=== PATIENT | male | born 1970 | race Caucasian/White ===

== ENCOUNTER 2019-11-02 12:59 | Emergency (ER) | payer OTHER ==
[~2019-11-02] VITALS: Ht 165.1 cm; Wt 70.8 kg
[2019-11-02 13:05] VITALS: BP_SYST 104
--- NOTE | 2019-11-02 13:05 | NUR ---
Pt placed in bed 6 by BLS
--- NOTE | 2019-11-02 13:06 | NUR ---
Pt BIB BLS from [facility] for increased weakness and decline in ADLs. Pt denies pain, SOB or CP at this time. Pt is aox3. Pt has a hx of CVA with right sided weakness.
[2019-11-02] MEDS ORDERED: ELVI1TAB3 PO (13:14)
[2019-11-02] MEDS ORDERED: SER100 PO (13:14)
[2019-11-02] MEDS ORDERED: DARU1TAB PO (13:14)
[2019-11-02] MEDS ORDERED: MIRT30TA PO (13:14)
--- NOTE | 2019-11-02 13:15 | NUR ---
Patient is awake, alert, and oriented x4. Patient arrived via ambulance. Patient was sent in due to increased weakness. Patient states it is due to his medication. Patient is complaining of left hand pain radiating up to his neck 07/04, states it is chronic due to a stroke 7 years ago. Patient denies nausea, vomiting, and diarrhea.
[2019-11-02 13:59] LABS: BASOPHILS % (AUTO) 0.8 % (0.0-2.0); EOSINOPHILS # (AUTO) 0.1 K/uL (0.0-0.4); EOSINOPHILS % (AUTO) 3.4 % (0.0-4.0); HEMATOCRIT 38.8 % (36-54); HEMOGLOBIN 12.7 g/dL (14.0-18.0); LYMPHOCYTES # (AUTO) 1.2 K/uL (1.0-5.5); LYMPHOCYTES % (AUTO) 31.8 % (20.5-51.5); MEAN CORPUSCULAR HEMOGLOBIN 29 pg (27-31); MEAN CORPUSCULAR HGB CONC 33 % (32-36); MEAN CORPUSCULAR VOLUME 89 fL (79.0-98.0); MONOCYTES # (AUTO) 0.4 K/uL (0.0-1.0); MONOCYTES % (AUTO) 10.2 % (1.7-9.3); NEUTROPHILS % (AUTO) 53.8 % (40.0-70.0); PLATELET COUNT (AUTO) 257 K/uL (130-430); RED BLOOD CELL COUNT(AUTO) 4.36 MIL/uL (4.2-6.2); RED CELL DISTRIBUTION WIDTH 15.7 % (9.0-15.0); WHITE BLOOD COUNT (AUTO) 3.7 K/uL (4.8-10.8)
[2019-11-02 14:12] LABS: CALCIUM 8.4 mg/dL (8.4-11.0); CREATININE 1.37 mg/dL (0.55-1.30); POTASSIUM 3.7 mmol/L (3.5-5.1)
[2019-11-02 14:19] LABS: ALBUMIN 3.6 g/dL (3.4-4.8); TOTAL BILIRUBIN 0.4 mg/dL (0.0-1.0)
--- NOTE | 2019-11-02 14:54 | NUR ---
Medication reconciliation completed with information provided by facility. Any prior medication reconciliation on file was reviewed and corrected.
[2019-11-02 15:50] LABS: BILIRUBIN,URINE NEGATIVE (NEGATIVE); BLOOD, URINE NEGATIVE (NEGATIVE); CLARITY/URINE CLEAR (CLEAR); COLOR,URINE YELLOW (YELLOW); GLUCOSE,URINE NEGATIVE (NEGATIVE); KETONES,URINE NEGATIVE (NEGATIVE); LEUKOCYTE ESTERASE ,URINE NEGATIVE (NEGATIVE); NITRITE, URINE NEGATIVE (NEGATIVE); PH,URINE 6.5 (5.0-8.0); PROTEIN URINE NEGATIVE (NEGATIVE); UROBILINOGEN,URINE 0.2 (0.2-1.0)
[2019-11-02 17:38] VITALS: BP_SYST 114
--- NOTE | 2019-11-02 17:52 | NUR ---
[facility] to transport patient back to facility via BLS. ETA is 2607.
--- NOTE | 2019-11-02 17:54 | NUR ---
KARINA Smith called at [facility] and informed patient will be transported via BLS at 1825.
--- NOTE | 2019-11-02 18:36 | NUR ---
[facility] on site. Report given to siphon operator.
== END 2019-11-02 17:38 | disposition home or self-care (01) ==
LOC: SED 12:59
DX: R53.1 Weakness (principal); Z79.899 Other long term (current) drug therapy
CPT/HCPCS: 36415; 71045; 80053; 81003; 83605; 84484; 85025; 85610-TC; 85730-TC; 87040-TC; 87086; 87186-TC; 93005; 99284

== ENCOUNTER 2020-05-23 07:35 | Emergency (ER) | payer OTHER ==
[~2020-05-23] VITALS: Ht 165.1 cm; Wt 69.9 kg
[~2020-05-23 07:35] MED LIST: DARU1TAB PO; ELVI1TAB3 PO; MIRT30TA PO; SER100 PO
--- NOTE | 2020-05-23 07:35 | NUR ---
Patient triaged and waiting in ambulance. VSS and patient appears in no acute distress at this time. Accompanied by buffing wheel former automatic, awaiting available bed, and MD notified of need for MSE.
[2020-05-23 07:57] VITALS: BP_SYST 91
--- NOTE | 2020-05-23 08:00 | NUR ---
ALLIE Schneider at bedside examining patient.
--- NOTE | 2020-05-23 08:05 | NUR ---
pt arrives from [facility] f/t fever and increasing gen weak. pt is AAO x 4, is afebrile. pt is a paraplegic. will continue to monitor
--- NOTE | 2020-05-23 08:25 | NUR ---
Flu and Covid 19 test collected and sent to the lab
--- NOTE | 2020-05-23 08:26 | NUR ---
Placed in room 7. Placed on printed circuit layout taper, blood pressure machine and pulse oximeter. To gown for exam. Side rails up. Report given to GOOD Arellano.
--- NOTE | 2020-05-23 08:28 | NUR ---
Note shanika in ED - 05/23/20 at 0828 by SOFIA Patient to bed 7 to [facility] for evaluation. Side rails up.
[2020-05-23 09:02] LABS: BASOPHILS % (AUTO) 0.4 % (0.0-2.0); EOSINOPHILS # (AUTO) 0.2 K/uL (0.0-0.4); EOSINOPHILS % (AUTO) 3.2 % (0.0-4.0); HEMATOCRIT 40.2 % (36-54); HEMOGLOBIN 13.3 g/dL (14.0-18.0); LYMPHOCYTES # (AUTO) 0.4 K/uL (1.0-5.5); LYMPHOCYTES % (AUTO) 8.7 % (20.5-51.5); MEAN CORPUSCULAR HEMOGLOBIN 30 pg (27-31); MEAN CORPUSCULAR HGB CONC 33 % (32-36); MEAN CORPUSCULAR VOLUME 92 fL (79.0-98.0); MONOCYTES # (AUTO) 0.6 K/uL (0.0-1.0); MONOCYTES % (AUTO) 11.2 % (1.7-9.3); NEUTROPHILS # (AUTO) 3.9 K/uL (1.8-7.7); NEUTROPHILS % (AUTO) 76.5 % (40.0-70.0); PLATELET COUNT (AUTO) 220 K/uL (130-430); RED BLOOD CELL COUNT(AUTO) 4.38 MIL/uL (4.2-6.2); RED CELL DISTRIBUTION WIDTH 17.2 % (9.0-15.0)
--- NOTE | 2020-05-23 09:05 | NUR ---
# 22 gauge angiocath placed to lac. Use of asceptic technique. Opsite placed over site. Blood return noted. Blood for lab drawn from site. Flushed with 10 cc of normal saline. No evidence of infiltration noted. Patient tolerated well.
[2020-05-23 09:11] LABS: PROTHROMBIN TIME 10.1 SECS (9.5-12.5)
[2020-05-23 09:15] LABS: CALCIUM 8.3 mg/dL (8.4-11.0); CREATININE 1.54 mg/dL (0.55-1.30); POTASSIUM 3.9 mmol/L (3.5-5.1)
[2020-05-23] MEDS ORDERED: NACL 0.9% 1,000 ML IV ONE (09:15)
[2020-05-23 09:22] LABS: ALBUMIN 3.6 g/dL (3.4-4.8); C-REACTIVE PROTEIN QUANT 1.9 mg/dL (0-0.5); TOTAL BILIRUBIN 0.3 mg/dL (0.0-1.0)
[2020-05-23 09:56] LABS: BILIRUBIN,URINE NEGATIVE (NEGATIVE); BLOOD, URINE NEGATIVE (NEGATIVE); CLARITY/URINE CLEAR (CLEAR); COLOR,URINE YELLOW (YELLOW); GLUCOSE,URINE NEGATIVE (NEGATIVE); KETONES,URINE NEGATIVE (NEGATIVE); LEUKOCYTE ESTERASE ,URINE NEGATIVE (NEGATIVE); NITRITE, URINE NEGATIVE (NEGATIVE); PH,URINE 6.5 (5.0-8.0); PROTEIN URINE NEGATIVE (NEGATIVE)
--- NOTE | 2020-05-23 10:00 | NUR ---
urine collected via straight cath.
[2020-05-23 10:55] VITALS: BP_SYST 102
--- NOTE | 2020-05-23 11:01 | NUR ---
Patient given written and verbal discharge instructions and verbalizes understanding. ER MD discussed with patient the results and treatment provided. Patient in stable condition. ID arm band removed. IV catheter removed intact and dressing applied, no active bleeding. Patient educated on pain management and to follow up with PMD. Pain Scale 0/10. Opportunity for questions provided and answered. Medication side effect fact sheet provided. Informed Wendy from [facility] that the pt will be returning toback to them
--- NOTE | 2020-05-24 13:36 | NUR ---
Patient is at [facility], I called them and contacted Kindra Gil (Facility's Nurse Environmental Change Analyst)and notified patient's "Detected" CoVID-19 laboratory test results and recommended to place patient in Isolation Precautions. Ms. Gil verbalizes understanding.
== END 2020-05-23 10:55 | disposition home or self-care (01) ==
LOC: SED 07:35
DX: R50.9 Fever, unspecified (principal); K21.9 Gastro-esophageal reflux disease without esophagitis; I10 Essential (primary) hypertension; Z20.828 Contact with and (suspected) exposure to other viral communicable diseases; Z79.899 Other long term (current) drug therapy
CPT/HCPCS: 36415; 71045; 80053; 81003; 82728; 83605; 83615; 83880; 84484; 85025; 85379; 85384; 85610; 85730; 86140; 86710; 87040; 87086; 93005; 99285; C9803; J7030; U0003